=== PATIENT | male | born 1985 | race Caucasian/White ===

== ENCOUNTER 2018-10-07 08:53 | Emergency (ER) | payer BC ==
[2018-10-07] MEDS ORDERED: ONDANSETRON 4 MG/2 ML VIAL ONE (09:27)
[2018-10-07] MEDS ORDERED: MORPHINE 4 MG/ML SYR ONE ×2 (09:27→09:59)
[2018-10-07 09:42] LABS: Absolute Lymphocytes (CBC) 2.5 K/uL (0.7-4.9); Basophils % 0.8 % (0-1.3); Eosinophils % 1.6 % (0-4.4); Hematocrit 42.1 % (39.6-49.0); Lymphocytes % 42.7 % (15.3-44.8); MPV 8.3 fL (7.6-11.3); Monocytes % 10.6 % (3.3-12.3); RBC Red Blood Cell Count 4.91 M/uL (4.33-5.43)
[2018-10-07] MEDS ORDERED: NA CHLORIDE 0.9% 1,000 ML ONE (09:44)
--- NOTE | 2018-10-07 09:53 | RAD REPORT ---
EXAM DESCRIPTION: CT - Stone Protocol - 10/07/2018 9:34 am CLINICAL HISTORY: Abdominal pain, right flank pain, tarry stools COMPARISON: None. TECHNIQUE: Axial 5 mm thick images were obtained without oral or IV contrast. The tuqva-iu-bfei span s the entirety of the system partially obscuring uppermost abdomen and lung bases. All CT scans are performed using dose optimization technique as appropriate and may include automated exposure control or mA/KV adjustment according to patient size. FINDINGS: Mild hydronephrosis of the right side pelvis and calices present secondary to a 5 mm UPJ c alculus. Bilateral 2 mm nonobstructing calyx calculi are present. No left-sided hydronephrosis. No bl adder calculus. Prostate calcifications and phleboliths are seen in the pelvic floor. No suspicious r enal masses. Isodense masses and pyelonephritis are not excluded on a stone protocol CT scan. No urin yeison bladder suspicious finding. No significant adrenal finding. Imaged portions of the liver, spleen and pancreas show no suspicious findings on non-contrast imaging . No gallbladder or biliary tree abnormality identified. No suspicious bowel findings. Appendix is normal. Rare diverticula seen in the sigmoid colon. Moderat e right-sided stool volume. No acute colon process seen. No mass or bulky lymphadenopathy. Small fat only umbilical hernia present. No free air, free fluid or inflammatory stranding. No significant bony abnormality. IMPRESSION: Mild right-sided hydronephrosis of the pelvis and calices due to a 5 mm UPJ calculus. Kiko mcgarry has nonobstructing bilateral 2 mm calyx calculi. Isodense masses and pyelonephritis are not excluded on stone protocol technique. No acute bowel finding.
[2018-10-07 10:00] LABS: Albumin 3.7 g/dL (3.4-5.0); Bilirubin Direct 0.1 mg/dL (0-0.2); Bilirubin Total 0.6 mg/dL (0.2-1.0); Potassium 3.6 mmol/L (3.5-5.1); Protein, Total 6.8 g/dL (6.4-8.2)
[2018-10-07] MEDS ORDERED: KETOROLAC 30 MG/ML INJ ONE (10:40)
--- NOTE | 2018-10-07 11:01 | EDPHYS ---
Physician Documentation [facility] Name: Reji Bertrand Age: 33 yrs Sex: Male : 1985 Arrival Date: 10/07/2018 Time: 08:55 Bed 25 Private MD: ED Physician Hilario Lindsey HPI: 10/07 10:11 This 33 yrs old Male presents to ER via Ambulatory with complaints of ma2 Abdominal Pain, Back Pain. 10:11 The patient presents with pain that is acute. Onset: The symptoms/episode ma2 began/occurred suddenly, gradually, 1 day(s) ago. The pain does not radiate. Associated signs and symptoms: Pertinent negatives: constipation, fever, hematuria. Severity of symptoms: At their worst the symptoms were moderate, in the emergency department the symptoms are unchanged. The patient has experienced similar episodes in the past. Historical: - Allergies: 09:06 No Known Allergies; hj - Home Meds: 09:06 None [Active]; hj - PMHx: 09:06 kindey stones; hj - PSHx: 09:06 shock wave kidney procedure; hj - Immunization history:: Adult Immunizations up to date. - Social history:: Smoking status: Patient/guardian denies using tobacco, Patient/guardian denies using alcohol, Patient/guardian denies using street drugs, The patient lives with family. - Ebola Screening: : Patient negative for fever greater than or equal to 101.5 degrees Fahrenheit, and additional compatible Ebola Virus Disease symptoms Patient denies exposure to infectious person Patient denies travel to an Ebola-affected area in the 21 days before illness onset. - Family history:: not pertinent. ROS: 10:11 Constitutional: Negative for fever, chills, and weight loss. ma2 10:11 All other systems are negative. Exam: 10:11 Constitutional: This is a well developed, well nourished patient who is awake, alert, ma2 and in no acute distress. Chest/axilla: Normal chest wall appearance and motion. Nontender with no deformity. No lesions are appreciated. Cardiovascular: Regular rate and rhythm with a normal S1 and S2. No gallops, murmurs, or rubs. Normal PMI, no JVD. No pulse deficits. Respiratory: Lungs have equal breath sounds bilaterally, clear to auscultation and percussion. No rales, rhonchi or wheezes noted. No increased work of breathing, no retractions or nasal flaring. Abdomen/GI: Soft, non-tender, with normal bowel sounds. No distension or tympany. No guarding or rebound. No evidence of tenderness throughout. Back: No spinal tenderness. No costovertebral tenderness. Full range of motion. Male : Normal genitalia with no discharge or lesions. MS/ Extremity: Pulses equal, no cyanosis. Neurovascular intact. Full, normal range of motion. Neuro: Awake and alert, GCS 15, oriented to person, place, time, and situation. Cranial nerves II-XII grossly intact. Motor strength 5/5 in all extremities. Sensory grossly intact. Cerebellar exam normal. Normal gait. Vital Signs: 09:06 BP 121 / 111; Pulse 72; Resp 18; Temp 97.8(TE); Pulse Ox 99% on R/A; Weight 68.04 kg; Height 5 ft. 9 in. (175.26 cm); Pain 8/10; 10:00 BP 128 / 65; Pulse 69; Resp 18; Pulse Ox 100% on R/A; hj 11:13 BP 139 / 60; Pulse 65; Resp 18; Pulse Ox 100% on R/A; 09:06 Body Mass Index 22.15 (68.04 kg, 175.26 cm) MDM: 08:58 Patient medically screened. [facility] 10:11 Differential diagnosis: Pyelonephritis sprain, kidney stone. Data reviewed: vital [facility] signs, nurses notes, lab test result(s), radiologic studies. 10:59 Counseling: I had a detailed discussion with the patient and/or guardian regarding: the [facility] historical points, exam findings, and any diagnostic results supporting the discharge/admit diagnosis, the presence of at least one elevated blood pressure reading (>120/80) during this emergency department visit, the need for outpatient follow up. Response to treatment: the patient's symptoms have markedly improved after treatment. 10/07 09:22 Order name: Basic Metabolic Panel [facility] 10/07 09:22 Order name: CBC with Diff [facility] 10/07 09:22 Order name: Creatinine for Radiology; Complete Time: 10:24 [facility] 10/07 09:22 Order name: Hepatic Function; Complete Time: 10:24 [facility] 10/07 09:22 Order name: Lipase; Complete Time: 10:24 ma2 10/07 09:22 Order name: Urine Microscopic Only ma2 10/07 09:22 Order name: Stone Protocol CT; Complete Time: 10:24 ma2 10/07 09:24 Order name: Basic Metabolic Panel; Complete Time: 10:24 EDMS 10/07 09:24 Order name: CBC with Automated Diff; Complete Time: 10:24 EDMS 10/07 11:08 Order name: Urine Dipstick--Ancillary (enter results) eb 10/07 09:22 Order name: IV Saline Lock; Complete Time: 09:27 ma2 10/07 09:22 Order name: Labs collected and sent; Complete Time: 09:27 ma2 10/07 09:22 Order name: Urine Dipstick-Ancillary (obtain specimen); Complete Time: 10:54 ma2 Administered Medications: 09:10 Drug: Zofran 4 mg Route: IVP; Site: left antecubital; hj 09:27 Follow up: Response: No adverse reaction hj 09:10 Drug: morphine 4 mg Route: IVP; Site: left antecubital; hj 09:27 Follow up: Response: No adverse reaction hj 09:38 Drug: NS 0.9% 1000 ml Route: IV; Rate: 1 bolus; Site: left antecubital; hj 11:02 Follow up: IV Status: Completed infusion; IV Intake: 1000ml hj 09:45 Drug: morphine 4 mg Route: IVP; Site: left antecubital; hj 11:01 Follow up: Response: No adverse reaction; Pain is decreased hj 10:25 Drug: TORadol 30 mg Route: IVP; Site: left antecubital; hj 11:01 Follow up: Response: No adverse reaction; Pain is decreased Disposition: 10/07/18 11:00 Discharged to Home. Impression: Calculus of kidney with calculus of ureter. - Condition is Stable. - Discharge Instructions: Kidney Stones. - Prescriptions for Tylenol- Codeine #3 300-30 mg Oral Tablet - take 2 tablet by ORAL route every 6 hours As needed; 30 tablet. Zofran 4 mg Oral Tablet - take 1 tablet by ORAL route every 12 hours As needed; 6 tablet. Flomax 0.4 mg Oral Capsule, Sust. Release 24 hr - take 1 capsule by ORAL route once daily 1/2 hour following the same meal each day; 30 capsule. - Medication Reconciliation Form, Thank You Letter, Antibiotic Education, Prescription Opioid Use form. - Follow up: Sheridan Grey MD; When: Tomorrow; Reason: Continuance of care. Signatures: Dispatcher [employer] Neil Mackey RN RN Hilario Britton MD MD ma2 Corrections: (The following items were deleted from the chart) 11:15 11:00 10/07/2018 11:00 Discharged to Home. Impression: Calculus of kidney with calculus hj of ureter. Condition is Stable. Forms are Medication Reconciliation Form, Thank You Letter, Antibiotic Education, Prescription Opioid Use. Follow up: Sheridan Grey; When: Tomorrow; Reason: Continuance of care. ma2
--- NOTE | 2018-10-07 11:01 | ER ---
Nurse's Notes [facility] Name: Reji Bertrand Age: 33 yrs Sex: Male : 1985 Arrival Date: 10/07/2018 Time: 08:55 Bed 25 Private MD: Diagnosis: Calculus of kidney with calculus of ureter Presentation: 10/07 09:03 Presenting complaint: Patient states: i have black tarry stools for more than a week hj now, and my R flank area is hurting, the pain goes down to my R groin area, hx of kidney stones; reports nausea; reports chills;. Transition of care: patient was not received from another setting of care. Onset of symptoms was October 07, 2018. Risk Assessment: Do you want to hurt yourself or someone else? Patient reports no desire to harm self or others. Initial Sepsis Screen: Does the patient meet any 2 criteria? No. Patient's initial sepsis screen is negative. Does the patient have a suspected source of infection? No. Patient's initial sepsis screen is negative. Care prior to arrival: None. 09:03 Method Of Arrival: Ambulatory 09:03 Acuity: SARITA 3 hj Triage Assessment: 09:07 General: Appears in no apparent distress. uncomfortable, Behavior is calm, cooperative, hj appropriate for age. Pain: Complains of pain in R flank Pain radiates to R groin. GI: Reports lower abdominal pain, nausea. Historical: - Allergies: 09:06 No Known Allergies; hj - Home Meds: 09:06 None [Active]; hj - PMHx: 09:06 kindey stones; hj - PSHx: 09:06 shock wave kidney procedure; hj - Immunization history:: Adult Immunizations up to date. - Social history:: Smoking status: Patient/guardian denies using tobacco, Patient/guardian denies using alcohol, Patient/guardian denies using street drugs, The patient lives with family. - Ebola Screening: : Patient negative for fever greater than or equal to 101.5 degrees Fahrenheit, and additional compatible Ebola Virus Disease symptoms Patient denies exposure to infectious person Patient denies travel to an Ebola-affected area in the 21 days before illness onset. - Family history:: not pertinent. Screenin:07 Abuse screen: Denies threats or abuse. Denies injuries from another. Nutritional hj screening: No deficits noted. Tuberculosis screening: No symptoms or risk factors identified. Fall Risk None identified. Assessment: 09:08 GI: Bowel sounds Abd is soft Abdomen is tender to palpation. hj 09:08 General: Appears in no apparent distress. uncomfortable, Behavior is calm, cooperative, hj appropriate for age. Pain: Complains of pain in R flank Pain radiates to R groin area. Neuro: Level of Consciousness is awake, alert, obeys commands, Oriented to person, place, time, situation, Appropriate for age. Cardiovascular: Capillary refill < 3 seconds Patient's skin is warm and dry. Respiratory: Airway is patent Respiratory effort is even, unlabored, Respiratory pattern is regular, symmetrical. : Reports hx of kidney stones. EENT: No signs and/or symptoms were reported regarding the EENT system. Derm: No signs and/or symptoms reported regarding the dermatologic system. Musculoskeletal: No signs and/or symptoms reported regarding the musculoskeletal system. 10:30 Reassessment: Patient and/or family updated on plan of care and expected duration. Pain hj level reassessed. Patient is alert, oriented x 3, equal unlabored respirations, skin warm/dry/pink. Patient states feeling better. 11:00 Reassessment: Patient and/or family updated on plan of care and expected duration. Pain hj level reassessed. Patient is alert, oriented x 3, equal unlabored respirations, skin warm/dry/pink. Patient states feeling better. Vital Signs: 09:06 BP 121 / 111; Pulse 72; Resp 18; Temp 97.8(TE); Pulse Ox 99% on R/A; Weight 68.04 kg; hj Height 5 ft. 9 in. (175.26 cm); Pain 8/10; 10:00 BP 128 / 65; Pulse 69; Resp 18; Pulse Ox 100% on R/A; hj 11:13 BP 139 / 60; Pulse 65; Resp 18; Pulse Ox 100% on R/A; hj 09:06 Body Mass Index 22.15 (68.04 kg, 175.26 cm) ED Course: 08:55 Patient arrived in ED. mr 08:58 Hilario Lindsey MD is Attending Physician. ma2 09:03 Neil De León RN is Primary Nurse. hj 09:05 Triage completed. hj 09:07 Arm band placed on right wrist. hj 09:08 Patient has correct armband on for positive identification. Placed in gown. Bed in low hj position. Call light in reach. Side rails up X 1. Adult w/ patient. 09:16 Inserted saline lock: 22 gauge in left antecubital area, using aseptic technique. Blood jb1 collected. 09:[address] vm2 09:34 CT completed. Patient tolerated procedure well. Patient moved back from CT. mw3 09:[address] In Process Unspecified. EDMS 10:59 Sheridan Grey MD is Referral Physician. ma2 11:13 No provider procedures requiring assistance completed. IV discontinued, intact, hj bleeding controlled, No redness/swelling at site. Pressure dressing applied. Administered Medications: 09:10 Drug: Zofran 4 mg Route: IVP; Site: left antecubital; hj 09:27 Follow up: Response: No adverse reaction hj 09:10 Drug: morphine 4 mg Route: IVP; Site: left antecubital; hj 09:27 Follow up: Response: No adverse reaction hj 09:38 Drug: NS 0.9% 1000 ml Route: IV; Rate: 1 bolus; Site: left antecubital; hj 11:02 Follow up: IV Status: Completed infusion; IV Intake: 1000ml hj 09:45 Drug: morphine 4 mg Route: IVP; Site: left antecubital; hj 11:01 Follow up: Response: No adverse reaction; Pain is decreased hj 10:25 Drug: TORadol 30 mg Route: IVP; Site: left antecubital; hj 11:01 Follow up: Response: No adverse reaction; Pain is decreased hj Intake: 11:02 IV: 1000ml; Total: 1000ml. hj Outcome: 11:00 Discharge ordered by . ma2 11:13 Discharged to home ambulatory, with family. hj 11:13 Condition: stable 11:13 Discharge instructions given to patient, family, Instructed on discharge instructions, follow up and referral plans. medication usage, Demonstrated understanding of instructions, follow-up care, medications, Prescriptions given X 3. 11:15 Patient left the ED. hj Signatures: Dispatcher [employer] EDMS Curly Mims jb1 Gabrielle Baig mr Neil De León RN RN Shannon Ng 2 Hilario Lindsey MD MD ma2 Willis Tracy mw3
[2018-10-07 11:12] LABS: Urine Amorphous Sediment 1+ /HPF (NONE SEEN); Urine Bacteria <20 /HPF (NONE SEEN); Urine Culture Reflex Order NOT NEEDED; Urine RBC TNTC /HPF (NONE SEEN)
[2018-10-07 11:13] LABS: Urine Glucose NEGATIVE (NEG); Urine Specific Gravity 1.025 (1.005-1.030)
[2018-10-07 11:14] LABS: Urine Blood 3+ (NEG); Urine Protein 2+ (NEG)
== END 2018-10-07 11:15 | disposition home or self-care (01) ==
LOC: ER 08:53
DX: N20.2 Calculus of kidney with calculus of ureter (principal); Z87.442 Personal history of urinary calculi
CPT/HCPCS: 36415; 74176; 76377; 80048; 80076; 81003; 81015; 83690; 85025; 96361; 96374; 96375; 99284; J2405; J7030